=== PATIENT | male | born 1985 | race Two or more races ===

== ENCOUNTER 2016-12-18 16:24 | Emergency (ER) | payer SELFPAY ==
[~2016-12-18] VITALS: Ht 157.5 cm; Wt 86.2 kg
[2016-12-18 16:39] VITALS: BP 133/80
[2016-12-18] MEDS ORDERED: TRAM50TA PO (16:48)
--- NOTE | 2016-12-18 16:48 | PHYS DOC ---
Past Medical History Past Medical History: No Pertinent History Past Surgical History: No Surgical History Alcohol Use: None Drug Use: None Adult General Chief Complaint Chief Complaint: DENTAL PROBLEM HPI HPI Patient is a 30 year old male presents to the emergency department with right upper molar pain. He was evaluated at [facility] 2 days ago and placed on ibuprofen and penicillin. He states his pain has persisted. He is here seeking pain medication. He has fever, difficulty with swallowing or phonation. Review of Systems Review of Systems Constitutional: Denies fever or chills [] Eyes: Denies change in visual acuity, redness, or eye pain [] HENT: Denies nasal congestion or sore throat, mouth pain [] Respiratory: Denies cough or shortness of breath [] Cardiovascular: No additional information not addressed in HPI [] GI: Denies abdominal pain, nausea, vomiting, bloody stools or diarrhea [] : Denies dysuria or hematuria [] Musculoskeletal: Denies back pain or joint pain [] Integument: Denies rash or skin lesions [] Neurologic: Denies headache, focal weakness or sensory changes [] Endocrine: Denies polyuria or polydipsia [] Allergies Allergies Allergies Coded Allergies Type Severity Reaction Last Updated Verified No Known Drug Allergies 12/18/16 No Physical Exam Physical Exam Constitutional: Well developed, well nourished, no acute distress, non-toxic appearance. [] HENT: Normocephalic, atraumatic, bilateral external ears normal, oropharynx moist, no oral exudates, tooth #1 and 2 with decay, surrounding gingiva with erythema. Patient does have diffuse dental caries. Nose normal. [] Eyes: PERRLA, EOMI, conjunctiva normal, no discharge. [] Neck: Normal range of motion, no tenderness, supple, no stridor. [] Cardiovascular:Heart rate regular rhythm, no murmur [] Lungs & Thorax: Bilateral breath sounds clear to auscultation [] Abdomen: Bowel sounds normal, soft, no tenderness, no masses, no pulsatile masses. [] Skin: Warm, dry, no erythema, no rash. [] Back: No tenderness, no CVA tenderness. [] Extremities: No tenderness, no cyanosis, no clubbing, ROM intact, no edema. [] Neurologic: Alert and oriented X 3, normal motor function, normal sensory function, no focal deficits noted. [] Current Patient Data Vital Signs Vital Signs Date Time Temp Pulse Resp B/P (MAP) Pulse Ox O2 Delivery O2 Flow Rate FiO2 12/18/16 16:39 98.3 89 17 96 Room Air 98.3 EKG EKG [] Radiology/Procedures Radiology/Procedures [] Course & Med Decision Making Course & Med Decision Making Pertinent Labs and Imaging studies reviewed. (See chart for details) [] Dragon Disclaimer Dragon Disclaimer This electronic medical record was generated, in whole or in part, using a voice recognition dictation system. Departure Departure Impression: Primary Impression: Dental abscess Disposition: HOME, SELF-CARE Condition: STABLE Patient Instructions: Dental Abscess Additional Instructions: Continue the antibiotic and pain medications as prescribed by [facility]. Plan on follow-up with a dentist as soon as possible. You are provided with a dental list to assist with finding a dentist care for you Scripts Tramadol Hcl (TRAMADOL HCL) 50 Mg Tablet 50 MG PO Q6HRS Y for PAIN, #6 TAB 0 Refills Prov: KOBE MERCEDES APRN 12/18/16 KOBE MERCEDES APRN Dec 18, 2016 16:48
== END 2016-12-18 16:55 | disposition home or self-care (01) ==
LOC: ER 16:24
DX: K04.7 Periapical abscess without sinus (principal); K02.9 Dental caries, unspecified
CPT/HCPCS: 99283